=== PATIENT | female | born 1945 | race Two or more races ===

== ENCOUNTER 2017-08-10 07:00 | Day surgery (SDC) | payer OTHER ==
[~2017-08-10] VITALS: Ht 152.4 cm; Wt 63.5 kg
[~2017-08-10 07:00] MED LIST: DILATIAZEM PO; HYDROCHLOROTH12.5 M1 PO; LEVOTHYROXIN PO
[2017-08-11] MEDS ORDERED: DOCUSATE SODIU100 MG PO (11:14)
[2017-08-11] MEDS ORDERED: GABAPENTIN800 MG PO (11:14)
[2017-08-11] MEDS ORDERED: CLONAZEPAM1 MG PO (11:15)
[2017-08-11] MEDS ORDERED: PERCOCET 5-3251 EACH PO (11:15)
[2017-08-11] MEDS ORDERED: AMOX-CLAV 875-1 EACH PO (11:15)
== END 2017-08-11 08:00 | disposition home or self-care (01) ==
LOC: CIR.AMB 07:00 → RECOVERY 07:00 → EDSTATUS 12:00 → O/R 13:43 → PED 13:43 → CIR.AMB 08-11 08:00 → O/R 08-11 13:38 → PED 08-11 13:38
DX: M51.16 Intervertebral disc disorders with radiculopathy, lumbar region (principal); M47.26 Other spondylosis with radiculopathy, lumbar region; M48.061 Spinal stenosis, lumbar region without neurogenic claudication; I10 Essential (primary) hypertension; E03.8 Other specified hypothyroidism